=== PATIENT | male | born 1975 | race Caucasian/White ===

== ENCOUNTER 2016-09-11 10:19 | Day surgery (SDC) | payer BC ==
[~2016-09-11 10:19] MED LIST: FENTANYL CITRATE 50 MCG/ML SOL ONE; LIDOCAINE HCL 1% MPF SOL ONE; MIDAZOLAM 2 MG/2 ML SOL ONE; PROPOFOL 10 MG/ML EMU IV ONE
[2016-09-11] MEDS ORDERED: KETAMINE HYDROCHLORIDE 50 MG/ML SOL ONE (11:12)
[2016-09-11] MEDS ORDERED: METOCLOPRAMIDE HYDROCHLORIDE 5 MG/ML SOL ONE (11:35)
[2016-09-11] MEDS ORDERED: ONDANSETRON HCL 4 MG/2 ML SOL ONE (11:35)
[2016-09-11] MEDS ORDERED: DEXAMETHASONE 20 MG/5 ML (4 MG/ML SOL) ONE (11:35)
[2016-09-11] MEDS ORDERED: PROPOFOL 10 MG/ML EMU IV ONE (12:09)
[2016-09-11] MEDS ORDERED: KETOROLAC TROMETHAMINE 30 MG/ML SOL ONE (12:55)
[2016-09-11 13:41] VITALS: O2SAT 97
[2016-09-11 17:38] VITALS: BP 134/68; PULSE 67; RESP 18; TEMP 976
== END 2016-09-11 17:24 | disposition home or self-care (01) ==
LOC: SURG 10:19
PROVIDERS: ATTEND Orthopaedic Surgery
DX: S83.252A Bucket-handle tear of lateral meniscus, current injury, left knee, initial encounter (principal); M94.262 Chondromalacia, left knee; M23.42 Loose body in knee, left knee
CPT/HCPCS: 29874; 29881; J1100; J1885; J2250; J2405; J2765; J3010